=== PATIENT | male | born 1965 ===

== ENCOUNTER 2016-09-11 10:27 | Emergency (ER) | payer MEDICAID, OTHER ==
[2016-09-11 10:29] VITALS: BMI 26.6
[2016-09-11 10:37] VITALS: O2SAT 98
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
[2016-09-11] MEDS ORDERED: Oxycodone/Acetaminophen 5/325 mg Tab PO STA (10:52)
[2016-09-11 11:20] LABS: ADD MANUAL DIFF? NO
[2016-09-11 11:22] LABS: BASO # 0.06 K/mm3 (0.0-2.0); BASO % 0.5 % (0.0-3.0); EOS # 0.3 (0.0-0.7); EOS % 2.7 % (1.5-5.0); GRAN # 8.22 (1.4-6.5); GRAN % 73.6 % (50.0-68.0); HEMATOCRIT 40.7 % (42.0-52.0); LYMPH % 17.6 % (22.0-35.0); MEAN CELL VOLUME 76.5 fL (80.0-105.0); MEAN CORPUSCULAR HEMOGLOBIN 24.8 pg (25.0-35.0); MEAN CORPUSCULAR HGB CONC 32.4 g/dl (31.0-37.0); MONO # 0.6 (0.1-0.6); MONO % 5.6 % (1.0-6.0); PLATELET COUNT 393 10^3/uL (120.0-450.0); RED CELL DISTRIBUTION WIDTH 17.5 % (11.5-14.5); WHITE BLOOD COUNT 11.2 10^3/ul (4.5-11.0)
[2016-09-11 11:37] LABS: ALKALINE PHOSPHATASE 105 U/L (38-133); ALT/SGPT 37 U/L (7-56); AST/SGOT 59 U/L (15-59); BILIRUBIN,TOTAL 0.5 mg/dL (0.2-1.3); BLOOD UREA NITROGEN 18 mg/dL (7-21); CALCIUM 9.3 mg/dL (8.4-10.5); CARBON DIOXIDE 29 mmol/L (21-33); CHLORIDE 98 mmol/L (98-107); GFR AFRICAN-AMERICAN > 60; GLUCOSE,RANDOM 91 mg/dL (70-110); POTASSIUM 3.9 mmol/L (3.6-5.0); SODIUM 138 mmol/L (132-148); TOTAL PROTEIN 8.7 g/dL (5.8-8.3)
[2016-09-11 12:08] LABS: PH,URINE 7.5 (4.7-8.0); URINE BILIRUBIN NEGATIVE (NEGATIVE); URINE BLOOD NEGATIVE (NEGATIVE); URINE GLUCOSE (UA) NEGATIVE (NEGATIVE); URINE KETONE NEGATIVE (NEGATIVE); URINE LEUKOCYTE ESTERASE NEGATIVE Leu/uL (NEGATIVE); URINE PROTEIN TRACE mg/dL (<30 mg/dL)
[2016-09-11 12:12] LABS: URINE AMORPHOUS SEDIMENT TRACE; URINE APPEARANCE CLEAR (CLEAR); URINE COLOR DARK YELLOW (YELLOW); URINE EPITHELIAL CELLS 0 - 2 /hpf (0-5); URINE RBC NEGATIVE /hpf (0-2); URINE WBC NEGATIVE /hpf (0-6)
[2016-09-11 14:10] VITALS: TEMP 98
[2016-09-11 15:26] VITALS: BP 129/72; PULSE 81; RESP 17
--- NOTE | 2016-09-11 16:15 | RAD ---
HISTORY: si COMPARISON: Chest x-ray performed 08/13/16 TECHNIQUE: Chest, one view. FINDINGS: LUNGS: Mild left basilar atelectasis. Please note that chest x-ray has limited sensitivity for the detection of pulmonary masses. PLEURA: No significant pleural effusion identified. No definite pneumothorax . CARDIOVASCULAR: The cardiomediastinal silhouette appears within normal limits of size. OSSEOUS STRUCTURES: No acute osseous abnormality identified. VISUALIZED UPPER ABDOMEN: Elevation of the left hemidiaphragm. OTHER FINDINGS: Left axillary clips. IMPRESSION: Mild left basilar atelectasis.
--- NOTE | 2016-09-12 09:43 | CARD ---
APPROVED REPORT EKG Measurement Heart [id number] <Conclusion> Normal sinus rhythm Normal ECG No change
== END 2016-09-11 15:26 | disposition home or self-care (01) ==
LOC: ED 10:27
DX: T20.30XA Burn of third degree of head, face, and neck, unspecified site, initial encounter (principal); X08.8XXA Exposure to other specified smoke, fire and flames, initial encounter

== ENCOUNTER 2016-10-03 12:43 | Emergency (ER) | payer OTHER ==
[2016-10-03 12:44] VITALS: BMI 26.6
[2016-10-03 12:52] VITALS: BP 122/70; PULSE 80; RESP 18; TEMP 98.2; O2SAT 98
[2016-10-03] MEDS ORDERED: Oxycodone/Acetaminophen 5/325 mg Tab PO STA (13:34)
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
== END 2016-10-03 14:10 | disposition home or self-care (01) ==
LOC: ED 12:43
DX: R52 Pain, unspecified (principal); Z79.891 Long term (current) use of opiate analgesic

== ENCOUNTER 2016-10-17 15:51 | Emergency (ER) | payer OTHER ==
[2016-10-17 16:01] VITALS: TEMP 98.4; BMI 25.7
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
[2016-10-17] MEDS ORDERED: Bacitracin Ointment 30 GM TUBE TOP STA (16:52)
[2016-10-17] MEDS ORDERED: Oxycodone/Acetaminophen 5/325 mg Tab PO STA (16:58)
[2016-10-17 17:25] VITALS: BP 129/76; PULSE 78; RESP 20; O2SAT 99
== END 2016-10-17 17:28 | disposition home or self-care (01) ==
LOC: ED 15:51
DX: T20.35XD Burn of third degree of scalp [any part], subsequent encounter (principal); X08.8XXD Exposure to other specified smoke, fire and flames, subsequent encounter

== ENCOUNTER 2016-10-18 00:19 | Emergency (ER) | payer OTHER ==
[2016-10-18 00:20] VITALS: BMI 25.7
[2016-10-18 00:38] VITALS: BP 128/72; PULSE 84; RESP 18; TEMP 98.9; O2SAT 99
[2016-10-18 01:42] LABS: ADD MANUAL DIFF? NO
[2016-10-18 01:45] LABS: BASO # 0.04 K/mm3 (0.0-2.0); BASO % 0.5 % (0.0-3.0); EOS # 0.5 (0.0-0.7); EOS % 6.2 % (1.5-5.0); GRAN # 4.89 (1.4-6.5); GRAN % 63.3 % (50.0-68.0); HEMATOCRIT 34.4 % (42.0-52.0); LYMPH # 1.5 (1.2-3.4); LYMPH % 19.4 % (22.0-35.0); MEAN CORPUSCULAR HEMOGLOBIN 25.2 pg (25.0-35.0); MEAN CORPUSCULAR HGB CONC 32.3 g/dl (31.0-37.0); MEAN PLATELET VOLUME 7.9 fl (7.0-11.0); MONO # 0.8 (0.1-0.6); MONO % 10.6 % (1.0-6.0); PLATELET COUNT 361 10^3/uL (120.0-450.0); RED CELL DISTRIBUTION WIDTH 16.8 % (11.5-14.5); WHITE BLOOD COUNT 7.7 10^3/ul (4.5-11.0)
[2016-10-18 01:58] LABS: ALKALINE PHOSPHATASE 94 U/L (38-133); ALT/SGPT 41 U/L (7-56); AST/SGOT 51 U/L (15-59); BILIRUBIN,TOTAL 0.3 mg/dL (0.2-1.3); BLOOD UREA NITROGEN 16 mg/dL (7-21); CALCIUM 8.6 mg/dL (8.4-10.5); CARBON DIOXIDE 27 mmol/L (21-33); CHLORIDE 99 mmol/L (95-110); GFR AFRICAN-AMERICAN > 60; GLUCOSE,RANDOM 125 mg/dL (70-110); POTASSIUM 3.7 mmol/L (3.6-5.0); SODIUM 139 mmol/L (132-148); TOTAL PROTEIN 7.2 g/dL (5.8-8.3)
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
--- NOTE | 2016-10-18 07:57 | RAD ---
HISTORY: pes eval COMPARISON: 09/11/2016 FINDINGS: LUNGS: Linear scar/ atelectasis at left lung base, grossly unchanged. No acute consolidation elsewhere. PLEURA: No significant pleural effusion identified, no pneumothorax apparent. Mild nonspecific elevation of left hemidiaphragm, unchanged. CARDIOVASCULAR: Normal. OSSEOUS STRUCTURES: No significant abnormalities. VISUALIZED UPPER ABDOMEN: Normal. OTHER FINDINGS: None. IMPRESSION: Linear scar/atelectasis at left base. Otherwise unremarkable.
--- NOTE | 2016-10-18 11:17 | CARD ---
APPROVED REPORT EKG Measurement Heart [id number] <Conclusion> Normal sinus rhythm Normal ECG
== END 2016-10-18 08:20 | disposition home or self-care (01) ==
LOC: ED 00:19
DX: F43.10 Post-traumatic stress disorder, unspecified (principal); I10 Essential (primary) hypertension; F32.9 Major depressive disorder, single episode, unspecified; F41.9 Anxiety disorder, unspecified; F17.210 Nicotine dependence, cigarettes, uncomplicated